=== PATIENT | male | born 1990 | race Caucasian/White ===

== ENCOUNTER 2019-09-22 20:23 | Emergency (ER) | payer SELFPAY ==
[~2019-09-22] VITALS: Ht 170.2 cm; Wt 84.8 kg
[2019-09-22 20:31] VITALS: Ht 170.2 cm; Wt 84.8 kg
[2019-09-22 21:28] VITALS: BP 133/74
== END 2019-09-22 21:28 | disposition home or self-care (01) ==
LOC: ED 20:23
DX: S30.860A Insect bite (nonvenomous) of lower back and pelvis, initial encounter (principal); Z98.890 Other specified postprocedural states; W57.XXXA Bitten or stung by nonvenomous insect and other nonvenomous arthropods, initial encounter; Y93.89 Activity, other specified; Y92.828 Other wilderness area as the place of occurrence of the external cause; Y99.8 Other external cause status
CPT/HCPCS: 90715